=== PATIENT | female | born 1965 | race Caucasian/White ===

== ENCOUNTER → 2018-05-31 07:38 | Outpatient (CLI) | payer BC | END | disposition home or self-care (01) | LOC: D.CT 07:38 | PROVIDERS: ATTEND Internal Medicine Interventional Cardiology | DX: R55 Syncope and collapse (principal); R09.89 Other specified symptoms and signs involving the circulatory and respiratory systems ==

== ENCOUNTER → 2018-06-03 09:40 | Outpatient (CLI) | payer BC ==
--- NOTE | 2018-06-06 10:54 | ST ---
PATIENT:BRUNA SINHG MEDICAL RECORD: [id number] SEX: F LOCATION:[facility] ORDER #: ADMISSION DATE: 06/03/18 AGE OF PATIENT: 52 REFERRING PHYSICIAN: INTERPRETING PHYSICIAN: NATHANIEL BOYKIN MD DATE OF SERVICE: 06/03/2018 PROCEDURE: Nuclear stress test. INDICATION: Chest pain, syncope, family history of coronary artery disease. The patient was exercised on standard Lexiscan protocol with 31 mCi of sestamibi injected at peak stress, 11 mCi used previously for rest images. FINDINGS: Gated SPECT reveals preserved ejection fraction at 70% with good wall motion and thickening and brightening throughout all segments. SPECT imaging Cardiolite was used as myocardial fusion agent. There is homogeneous uptake throughout all segments at rest and stress with no evidence of inducible ischemia or previous infarction. OVERALL IMPRESSION: 1. This is a normal nuclear stress test with no evidence of inducible ischemia or previous infarction. 2. Gated SPECT reveals a preserved ejection fraction at 70%. In this patient with ongoing symptomatology, the current scan does not suggest the presence of hemodynamically significant coronary artery disease. Evaluate noncardiac etiology of chest pain. TRANSINT:[id number] Voice Confirmation ID: [id number] DOCUMENT ID: [id number] NATHANIEL BOYKIN MD at 1054 CC: [id number] DICTATION DATE: 06/05/18 1158 DECOMMISSIONING WELL SITE MANAGER: 06/06/18 0129 DEP CLI 06/03/18 [id number] [place] [address]
== END | disposition home or self-care (01) ==
LOC: D.HCCARDIO 05-30 11:00
PROVIDERS: ATTEND Internal Medicine Interventional Cardiology
DX: R07.9 Chest pain, unspecified (principal); R55 Syncope and collapse

== ENCOUNTER → 2019-05-24 14:04 | Outpatient (CLI) | payer BC | END | disposition home or self-care (01) | LOC: D.MRI 14:04 | PROVIDERS: ATTEND Orthopaedic Surgery | DX: S43.492A Other sprain of left shoulder joint, initial encounter (principal) ==

== ENCOUNTER 2019-06-12 17:48 | Day surgery (SDC) | payer MEDICAID ==
[~2019-06-12] VITALS: Ht 162.6 cm; Wt 74.8 kg
[2019-06-12 11:10] LABS: HEMATOCRIT 40.4 % (36.0-48.0); HEMOGLOBIN 13.3 g/dL (12-16); MCH 28.6 pg (26.0-34.0); MCHC 32.9 g/dL (31.0-37.0); MCV 86.9 fL (80.0-100.0); MEAN PLATELET VOLUME 9.6 fL (7.4-10.4); RBC 4.65 10x6/uL (4.00-5.40); RDW 12.3 % (11.5-14.5); WBC 5.8 10x3/uL (4.8-10.8)
[2019-06-12 11:12] VITALS: BP 114/52; Ht 162.6 cm; Wt 74.8 kg
--- NOTE | 2019-06-12 15:21 | NUR ---
1510-RECD TO ROOM FROM PACU. ALERT. LEFT SHOULDER DRESSING DRY AND INTACT, ICE IN PLACE, SLING ON. DENIES PAIN. RESP WITH EASE.
--- NOTE | 2019-06-12 17:42 | NUR ---
2060 ASSISTED WITH GETTING DRESSED AND IV REMOVED AND INSTRUCTIONS GIVEN. PT WAITING ON RIDE
[~2019-06-12 17:48] MED LIST: ALEVE220 MG PO; ESTRACE 0.0142.5 GM VG
--- NOTE | 2019-06-14 11:11 | OP ---
PATIENT NAME: BRUNA SINGH MEDICAL RECORD: [id number] :61 LOCATION:[facility] ADMISSION DATE: SURGEON: SHARAD DAVILA MD DATE OF OPERATION: 06/12/2019 PREOPERATIVE DIAGNOSES: 1. Impingement syndrome of the left shoulder. 2. Biceps tendinitis of the left shoulder. 3. Labral tear of the left shoulder. POSTOPERATIVE DIAGNOSES: 1. Impingement syndrome of the left shoulder. 2. Biceps tendinitis of the left shoulder. 3. Labral tear of the left shoulder. PROCEDURES: 1. Arthroscopic biceps tenotomy. 2. Arthroscopic distal clavicle excision done through separate incision. 3. Labral debridement. 4. Arthroscopic subacromial decompression with acromioplasty and bursectomy. SURGEON: Sharad Davila MD ANESTHESIA: General. INTRAOPERATIVE COMPLICATIONS: None. SUMMARY OF PATHOLOGIC FINDINGS: Consistent with preoperative diagnosis, the patient did have a labral tear, albeit, minimal. The patient had mostly severe biceps tendinitis as well as a downward sloping acromion and excoriation of the coracoacromial ligament, and chondromalacia of the distal clavicle. OPERATIVE SUMMARY IN DETAIL: After obtaining the appropriate preoperative orthopedic surgery consent as well as anesthetic consultation, evaluation, and clearance, the patient was brought to the operating room and placed him in supine position. After general laryngeal mask airway was administered, the patient was placed in right lateral decubitus position. All pressure points well padded to include down leg peritoneal pad as well as axillary roll. The patient was held firmly to the operating table using the vacuum pack suction system. Left upper extremity and shoulder were then prepped and draped in routine sterile fashion. The arm was held in the Arthrex traction boom at 30 degrees for forward flexion, 30 degrees of abduction with 10 pounds of traction laterally. At this point, the appropriate timeout was taken and agreed upon by all given the patient's unique identifiers. Arthroscopy was established in the glenohumeral joint from posterior portal. Anterior portal was established in the anterior safe interval. Diagnostic arthroscopy did show the patient has severe biceps tendinitis, very small labral tear. Biceps was released at the bicipital labral junction, then the labrum was gently debrided from a small pannus posteriorly and a very small tear anteriorly. Having completed this, attention was turned to the subacromial space. While in the subacromial space, distal lateral portal was created through which the [place] tissue ablation system was utilized to denude the undersurface of the acromion of all soft tissue elements and release the coracoacromial ligament. A 5-0 barrel bur was then used to perform acromioplasty at the level of acromioclavicular joint. There is a separate anterior arthroscopic portal. Under direct arthroscopic OPERATIVE REPORT [id number] BRUNA SINGH visualization, distal clavicle was excised for 1 cm. Having completed this, a substantial amount of subacromial bursitis was taken down both anteriorly, laterally, posteriorly and superiorly. The rotator cuff tear had some attritional changes; however, it was not torn. Having completed this, arthroscopy portals were closed in routine fashion using 4-0 Prolene. Sterile dressings were applied. The patient was awakened and taken to recover in satisfactory condition. All final needle and sponge counts were correct. TRANSINT:[id number] Voice Confirmation ID: [id number] DOCUMENT ID: [id number] LOLA RODRIGUEZ, SHARAD GLEASON at 1111 CC: [id number] DICTATION DATE: 06/12/19 1442 SHUCKER: 06/12/19 2328 [facility] 06/12/19 [facility] [address] [place] [address]
== END 2019-06-12 17:51 | disposition home or self-care (01) ==
LOC: D.OPS 17:48
PROVIDERS: Anesthesiology; ATTEND Orthopaedic Surgery
DX: M75.42 Impingement syndrome of left shoulder (principal); M75.22 Bicipital tendinitis, left shoulder; S43.402A Unspecified sprain of left shoulder joint, initial encounter; X58.XXXA Exposure to other specified factors, initial encounter; M25.512 Pain in left shoulder